=== PATIENT | male | born 1960 | race Hispanic/Latino ===

== ENCOUNTER 2018-11-11 11:12 | Outpatient (CLI) | payer OTHER ==
--- NOTE | 2018-11-11 11:33 | RAD ---
EXAM: 2 views of the left forearm HISTORY: Likely foreign body in the forearm. COMPARISON: None FINDINGS: There is a small metallic radiopaque foreign body along the volar aspect of the distal thir d of the forearm. This is just beneath the skin surface. There is no evidence of acute fracture or dislocation. No soft tissue swelling is seen. No degenerative changes are seen in the wrist or elbow. IMPRESSION: Foreign body in the distal forearm
== END 2018-11-11 11:13 | disposition home or self-care (01) ==
LOC: BICRAD 11:12
DX: S50.852A Superficial foreign body of left forearm, initial encounter (principal)

== ENCOUNTER 2020-08-11 12:21 | Outpatient (CLI) | payer OTHER | END 2020-08-11 12:22 | disposition home or self-care (01) | LOC: BICULT 12:21 | PROVIDERS: ATTEND Internal Medicine Nephrology | DX: R60.0 Localized edema (principal) | CPT/HCPCS: 93970 ==